=== PATIENT | female | born 1985 | race Caucasian/White ===

== ENCOUNTER 2017-06-11 07:13 | Day surgery (SDC) | payer OTHER ==
[2017-06-06 09:37] VITALS: BMI 29.2
[2017-06-11] MEDS ORDERED: Lactated Ringer's 1,000 ML IV ONE ×2 (08:37)
[2017-06-11] MEDS ORDERED: Doxycycline 100 mg Inj ONE (09:30)
[2017-06-11] MEDS ORDERED: Midazolam 2 MG/2 ML VIAL ONE (09:37)
[2017-06-11] MEDS ORDERED: Propofol 10 mg/ml Inj (20 ML) ONE (09:37)
--- NOTE | 2017-06-11 10:13 | PCM.SURG1 ---
Surgeon's Initial Post Op Note - Surgeon's Notes Surgeon: Dr. Aubree Yang Curtain Stretcher: none Type of Anesthesia: General LMA Pre-Operative Diagnosis: Dysmenorrhea, menorrhagia, endometrial polyp Operative Findings: normal appearing uterine cavity, bilateral ostia visualized Post-Operative Diagnosis: same Operation Performed: hysteroscopy, targeted D&C with myosure Specimen/Specimens Removed: endometrial curettings, ECC Estimated Blood Loss: EBL {In ML}: 10 Blood Products Given: N/A Drains Used: No Drains Post-Op Condition: Good Date of Surgery/Procedure: 06/11/17 Time of Surgery/Procedure: 10:10
--- NOTE | 2017-06-11 10:17 | CP.PCM.DIS ---
Provider - Provider Date of Admission: 06/11/17 Attending physician: Aubree Yang Time Spent in preparation of Discharge (in minutes): 10 Diagnosis - Discharge Diagnosis (1) Dysmenorrhea Status: Acute (2) Endometrial polyp Status: Acute (3) Menorrhagia Status: Acute Hospital Course - Hospital Course Hospital Course: Patient underwent hysteroscopy, D&C with myosure and tolerated procedure well. Patient was then discharged home once she was ambulating, voiding, tolerating regular diet. - Date & Time of H&P Date of H&P: 06/11/17 Time of H&P: 09:15 Discharge Exam - Eye Exam Eye Exam: Normal appearance - Neck Exam Neck exam: Full Rom - Respiratory Exam Respiratory Exam: NORMAL BREATHING PATTERN - GI/Abdominal Exam GI & Abdominal Exam: Unremarkable - Neurological Exam Neurological exam: Alert, Oriented x3 - Psychiatric Exam Psychiatric exam: Normal Affect, Normal Mood Discharge Plan - Follow Up Plan Condition: GOOD Disposition: DISCHARGED TO HOME CARE
[2017-06-11] MEDS: HYDROmorphone 0.5 mg/0.5 ml ISec IVP PRN ×2 (10:24→10:41)
[2017-06-11 12:37] VITALS: RESP 16; TEMP 97.2
--- NOTE | 2017-06-11 13:09 | OP ---
PROCEDURE DATE: 06/10/2017 PREOPERATIVE DIAGNOSES: Dysmenorrhea, menorrhagia, endometrial polyp. POSTOPERATIVE DIAGNOSES: Dysmenorrhea, menorrhagia, endometrial polyp. PROCEDURE: Hysteroscopy with targeted D and C with MyoSure. INTRAOPERATIVE FINDINGS: Normal-appearing uterine cavity, bilateral os is visualized. ADDICTIONS THERAPIST: None TYPE OF ANESTHESIA: General LMA. ESTIMATED BLOOD LOSS: 10 mL. SPECIMENS REMOVED: Endometrial curettings and endocervical curettage. BLOOD PRODUCTS GIVEN: None. DRAINS: None. POSTOPERATIVE CONDITIONS: Stable. ADDITIONAL COMMENTS: All lap counts and instrument counts were correct x2. DESCRIPTION OF PROCEDURE: After all relevant documentation was reviewed and signed by , the patient was taken back to the OR. After being placed under general anesthesia, she was positioned in lithotomy and prepped and draped in the usual sterile fashion. Bimanual examination revealed an anteverted uterus approximately 10 weeks' size and uterus was sounded to be 8 cm. Excellent visualization of the cervix was obtained with the bivalved speculum. The posterior lip of the cervix was then grabbed with a single-tooth tenaculum and then, the cervix was serially dilated until the hysteroscope was able to be introduced. Once the hysteroscope was introduced, the previously mentioned findings were noted. With the use of the MyoSure, targeted D and C was done and the hysteroscope was then removed. A gentle sharp curettage was then performed and the ECC was done. The single-tooth tenaculum was removed. Excellent hemostasis was noted. The speculum was removed and then, the patient awoken from general anesthesia and taken back to the recovery room in stable condition. Aubree Yang MD
[2017-06-11 14:50] VITALS: BP 105/52; PULSE 68; O2SAT 100
== END 2017-06-11 14:49 | disposition home or self-care (01) ==
LOC: C.SDS 07:13
PROVIDERS: ATTEND Obstetrics & Gynecology
DX: N84.0 Polyp of corpus uteri (principal); N92.0 Excessive and frequent menstruation with regular cycle
CPT/HCPCS: 58558; 88305; J1170; J2250; J2704; J3010; J7120